=== PATIENT | female | born 2000 | race Caucasian/White ===

== ENCOUNTER 2024-01-12 20:52 | Outpatient (REF) | payer OTHER, SELFPAY | END 2024-01-12 20:53 | disposition home or self-care (01) | LOC: LAB 20:52 | PROVIDERS: Visit Provider Physician Assistant | DX: Z01.419 Encounter for gynecological examination (general) (routine) without abnormal findings (principal) | CPT/HCPCS: 88175 ==

== ENCOUNTER 2025-01-12 14:57 | Outpatient (REF) | payer OTHER, SELFPAY ==
[2025-01-17 13:08] LABS: Age Gdln ACOG Testing Note (.); IGP, rfx Aptima HPV ASCU Note (.)
== END 2025-01-12 14:58 | disposition home or self-care (01) ==
LOC: LAB 14:57
PROVIDERS: Visit Provider Obstetrics & Gynecology
DX: Z01.419 Encounter for gynecological examination (general) (routine) without abnormal findings (principal)
CPT/HCPCS: 88175

== ENCOUNTER 2025-02-10 13:07 | Outpatient (REF) | payer OTHER, SELFPAY ==
--- OUTSIDE RECORDS SUMMARY | 2025-02-11 20:31 | XMS_ITS | Continuity of Care Document ---
Author Organization [facility] Address [address] [place] [address] Phone Care Team Providers Care Supervisor Television Chassis Repair Name Role Phone Eliza Castellano MD Primary Care Provider Eliza Castellano MD Attending Provider Wallace Reyes DO Attending Provider [phone] Care Teams Visit Care Team Team Status: Inactive Member Role Status Dates Eliza Castellano MD Primary Care Provider Active Start: January 10, 2025 End: January 10, 2025 Eliza Castellano MD Attending Provider Active St art: January 10, 2025 End: January 10, 2025 Patient Care Team Team Status: Inactive Member Role Status Dates Wallace Reyes DO Attending Provider Active Start : February 10, 2025 End: February 10, 2025 Chief Complaint and Reason for Visit Chief Complaint Admit Date wellness January 10, 2025 11:0 2am Unknown February 10, 2025 9: 35am Reason for Visit Admit Date Wellness examination January 10, 2025 11: 02am Allergies, Adverse Reactions, Alerts Allergen Type Severity Reaction Last Updated Verified Status No Known Allergies Allergy Unknown January 10, 2025 11:05 am Yes Active Social History Smoking Status Status Start Date End Date Date of Observa tion Never smoked tobacco (finding) January 10, 2025 11:07am Observation Status Observation Response Date of Response Legal Sex Female (finding) Sex Assigned At Female 2002 Status N Malia 14th, 2025 Problems Active Problems Medical Problem Onset Date Status Wellness examination Unknown Active Inactive/Resolved Problems Medical Problem Onset Date Status Bilateral conjunctivitis Unknown Resolve d Medications Medication Status Dose Units Route Directions Qty Days St art Date Stop Date End Date Instructions Adherence Ofloxacin 0.3 % drops Discont inued 2 DROPS EYE-THAD TH Four times daily 10 7 Novemb er 2023 1:00am January 10, 2025 11:06 am Immunizations Immunization Event Date Not Given Reason Dose Number Dispensing Audiologist Lot Number Vaccine Information Statement (VIS) Detail Administration Location COVID-19 mRNA, Comirnaty (Pfizer) January 11, 2021 COVID-19 mRNA, Comirnaty (Pfizer) February 01, 2021 Vital Signs Vital Reading Result Reference Range Collection Date/Time Height 68 [in_i] January 10, 2025 11:03am Weight 60.32 kg January 10, 2025 11:03am Heart Rate 82 /min 60-100 January 10, 2025 11:03am BP Systolic 109 mm[Hg] 100-140 January 10, 2025 11:03am BP Diastolic 69 mm[Hg] 60-100 January 10, 2025 11:03am BMI (Body Mass Index) 20.2 kg/m2 December 282024 11:03am Advance Directives Advance Directive Response Recorded Date/ Time Advance Directives No October 22 11:02am Insurance Providers Guarantor Jaclyn Ahsley Address [address] [place] [id number] Contact Info. Home Phone: Payer Policy Id Subscriber's Name Subscriber Id Effectiv e Date Expiration Date [facility] [place] [id number] Jaclyn Easton Ashley [id number] Encounters Encounter Location(s) Arrival/Admit Date Discharge/Depart Date Provider(s) Departed Physician/Prov ider Office Visit -[facility] January 10, 2025 11:02am January 10, 2025 11:21am Eliza Castellano MD Departed Referred -[facility] February 10, 2025 9:35am February 10, 2025 9:36am Wallace Reyes Recent Diagnosis Onset Date Admit Date Wellness examination Unknown January 10, 2025 11:02am Assessments Diagnosis Onset Date Resolution Status Admit Date Wellness examination acute January 10, 2025 11:02am Plan of Treatment Author Eliza Castellano [facility] Authored January 10, 2025 12:0 9pm Personalized health advice w as given to the beneficiary to health education of preventative counseling services or programs aimed at reducing identified risk factors and improving self-management or community-based lifestyle interventions to reduce health risks and promote self-management and wellness, including physical activity and nutrition. Future Tests Future scheduled test information is unavailable Pending Tests Pending diagnostic test information is unavailable Future Visits Future appointment information is unavailable Referrals to Other Providers Referral information is unavailable Future Procedures Future procedure information is unavailable Future Medications Future medication information is unavailable Patient Instructions Patient instructions are unavailable
--- OUTSIDE RECORDS SUMMARY | 2025-02-16 12:54 | XMS_ITS | Patient Health Record ---
Author Organization [facility] Address [address] [place] [address] Care Team Providers Care Appian Developer Name Role Phone Janessa Rehman MD Primary Care Provider John Cornelius [phone] Allergies No Known Allergies Reason For Referral No Information Social History Tobacco Use: Social History Observation Description Date Details (start date - stop date) Never Smoker NA - NA Smoking History Question Answer Notes Smoking Status NonSmoker Problems Problem Type SNOMED Code ICD Code Onset Dates Problem Status W/U Status Risk Notes Problem [id number] Closed displaced fracture of shaft of left clavicle with routine healing, subsequent encounter (S42.022D) Active confirmed Plan Of Treatment No Information Insurance Providers Payer Name Payer Address Payer Phone Subscriber Number Group Number Insured Name Patient Relationship to Insured Coverage Start Date Coverage End Date Medical Benefits Administ ration [address] [place] [address] [id number] JAYANT DEAL Child - Insured has Financial Responsibility Medical [facility] [address] [place] [address] [id number] JAYANT DEAL Child - Insured has Financial Responsibility Medical (General) History Medical History History ICD Code CPAP Machine: No, Do you use the CPAP machine? No, Pacemaker or AICD No, Latex Allergy No, Drug Allergies: No, Bariatric Surgery: No, Have you been in close conta ct with someone who has had MRSA within the last year? No, Have you ever had or presently have MRSA ? No, Are you a healthcare worker? No, Surgical History Surgery Date(Month/Year) ORIF LEFT CLAVICLE FX 06-11-2018
--- OUTSIDE RECORDS SUMMARY | 2025-02-16 12:54 | XMS_ITS | Clinical Summary ---
Author Organization [facility] Address [address] [place] [address] Phone Care Team Providers Care Bar Tender Name Role Phone Unavailable Primary Care Provider Unavailabl e Allergies No known active allergies Medications methylPREDNISol one (Medrol Dospak) 4 mg tabletsIndicati ons:Rash Follow schedule on package instructions 21 tablet 3 Active Social History Tobacco Use Types Packs/Day Years Used Date Smoking Tobacco: Never Tobacco Cessation:Counseling Given: Not Answered Comments Unknown Sex and Gender Information Value Date Recorded Sex Assigned at Not on file Legal Sex Female 6:39 PM EDT Gender Identity Not on file Sexual Orientation Not on file Last Filed Vital Signs Vital Sign Reading Time Taken Comments Blood Pressure 129/78 03/31/2023 7:07 PM EDT Pulse 55 03/31/2023 7:07 PM EDT Temperature 37.1 C (98.7 F) 03/31/2023 7:07 PM EDT Respiratory Rate 16 03/31/2023 7:07 PM EDT Oxygen Saturation 100% 03/31/2023 7:07 PM EDT Inhaled Oxygen Concentration - - Weight - - Height - - Body Mass Index - - Plan of Treatment Health Maintenance Due Date Last Done Comments HIV Screening 2002 Lipid Panel 2002 Yearly Adult Physical 2002 Hepatitis C Screening 01/24/2020 HPV Vaccines (2 - 3-dose series) 02/15/2020 01/18/2020 Hepatitis A Vaccines (2 of 2 - 2-dose series) 07/20/2020 01/18/2020 Meningococcal B Vaccine (2 of 2 - Bexsero SCDM 2-dose series) 07/20/2020 01/18/2020 Cervical Cancer Screening 2023 HPV/Cotest 2023 Pap Smear 2023 COVID-19 Vaccine ( season) 2024 07/20/2021, 02/01/2021, 01/11/2021 DTaP/Tdap/Td Vaccines (7 - Td or Tdap) 01/25/2025 01/25/2015, 02/10/2008, 01/26/2004, Additional history exists Influenza Vaccine (#1) 2025 Zoster Vaccines (1 of 2) 01/24/2052 02/10/2008, 04/30 Hepatitis B Vaccines Completed 2002, 2002, 2002 HIB Vaccines Completed 01/26/2004, 10/2002, 2002, Additional history exists Pneumococcal Vaccine: Pediatrics and At-Risk Adult Patients Aged Out 01/26/2004, 05/04/2003, 01/26/2003 No longer eligible based on patient's age to complete this topic IPV Vaccines Completed 02/10/2008, 08/30, 2002, Additional history exists MMR Vaccines Completed 02/10/2008, 12/29, 05/04/2003 Meningococcal Vaccine Completed 01/18/2020, 016 Rotavirus Vaccines Aged Out No longer eligible based on patient's age to complete this topic Insurance [employer]CIAL
--- OUTSIDE RECORDS SUMMARY | 2025-02-16 13:04 | XMS_ITS | CCD ---
Author Organization [facility] Care Team Providers Care Repulping Supervisor Name Role Phone MAGALYS SAMSON Unavailable Unavailable MAGALYS SAMSON Unavailable Unavailable MAGALYS SAMSON Unavailable Unavailable JOHN CASTRO Unavailable Unavailable Lillian Little Unavailable Eliza Castellano Unavailable Unavailable Primary Care Provider UnavailEliza Head MD Primary Care Provider Eliza Castellano MD Attending Provider [phone] Eliza Castellano MD Primary Care Provider [phone] Imani Reyes DO Attending Provider IMANI REYES Attending Unavailable IMANI REYES Attending Unavailable Imani Reyes Admitting Unavailable Imani Reyes Attending Unavailable Medications Current Medications Medication Drug Class(es) Dates Sig (Normalized) Sig (Original) azithromycin 250 mg oral tablet (1 source) Macrolide Antimicrobial Start: 4 Azithromycin 250 MG as directed Orally 2 tabs po today, then 1 tab daily x 4 more days for 5 Jun, Active benzonatate 200 mg oral capsule (1 source) Non-narcotic Antitussive Start: 4 take 1 capsule by mouth every eight hours Benzonatate 200 MG 1 capsule Orally Three times a day for 10 day(s) Jun, Active betamethasone 0.5 mg/ml / clotrimazole 10 mg/ml topical lotion (1 source) Azole Antifungal, Corticosteroid Start: 3 End: 3 clotrimazole-betameth asone (Lotrisone) lotion Indications: Rash Apply 1 Application topically 2 times a day for 28 days. 11.2 mL 0 03/31/2023 04/28/2023 Active methylPREDNISolone (1 source) Corticosteroid Start: methylPREDNISolone (Medrol Dospak) 4 mg tablets Indications: Rash Follow schedule on package instructions 21 tablet 0 03/31/2023 Active sulfamethoxazole 800 mg / trimethoprim 160 mg oral tablet (1 source) Dihydrofolate Reductase Inhibitor Antibacterial, Sulfonamide Antimicrobial take 1 tablet by mouth every twelve hours Sulfamethoxazole-Trim ethoprim 800-160 MG 1 tablet Orally Twice a day for 7 days Active Completed/Discontinued Medications Medication Drug Class(es) Dates Sig (Normalized) Sig (Original) Antipyrine / Benzocaine (3 sources) Standardized Chemical Allergen Start: 05-14-2015 Antipyrine-Benzo alhaji 5.4-1.4 % 2 drop affected ear canal into affected ear Otic every 2 hours as needed for ear pain, avoid if ear draining blood or pus for 10 days Apr, Not-Taking Augmentin Tablets 875 MG (3 sources) Start: 05-14-2015 take 1 tablet by mouth every twelve hours Augmentin Tablets 875 MG 1 by mouth every 12 hours for 10 days Apr, Not-Taking ciprofloxacin 3 mg/ml ophthalmic solution (3 sources) Quinolone Antimicrobial Start: 12-23-2021 take 2 drop(s) into the eye(s) every four hours Ciloxan 0.3 % 2 drops each eye every 4 hrs for 7 days Nov, Not-Taking Start: 12-23-2021 take 2 drop(s) into the eye(s) every four hours Ciloxan 0.3 % 2 drops each eye every 4 hrs for 7 days Nov, Active ofloxacin 3 mg/ml ophthalmic solution (5 sources) Quinolone Antimicrobial Start: 05-26-2024 End: 01-10-2025 take 0.3 drop(s) into the eye(s) four times daily Ofloxacin 0.3 % drops Discontinued 2 DROPS EYE-BOTH Four times daily 04 05May 26, 2024 1:00am January 10, 2025 11:06am Start: 05-14-2015 Ofloxacin 0.3 % 5 drops into affected ear Otic Once a day for 7 day(s) Apr, Not-Taking Start: 05-14-2015 Ofloxacin 0.3 % 5 drops into affected ear Otic Once a day for 7 day(s) Apr, Not-Taking Problems Problem Classification Problem Date Documented Date Episodic/Chronic Cancer of cervix (2 sources) Cervical intraepithelial neoplasia grade 1; Translations: [Low grade squamous intraepithelial lesion on cytologic smear of cervix (LGSIL)] 02-10-2025 Episodic Fracture of upper limb (1 source) Fracture of unspecified part of left clavicle, initial encounter for closed fracture; Translations: [FX UNS PRT LT CLAV INITIAL CLOS FX] Onset: 06-12-2018 Episodic Inflammation; infection of eye (except that caused by tuberculosis or sexually transmitteddisease) (3 sources) Unspecified conjunctivitis; Translations: [Bilateral conjunctivitis] Onset: 12-23-2021 Resolved: 12-23-2021 Episodic Other bone disease and musculoskeletal deformities (4 sources) Other specified disorders of bone, shoulder; Translations: [OTHER SPEC DISORDERS BONE SHOULDER] Onset: 06-09-2018 Episodic Other skin disorders (2 sources) Follicular disorder, unspecified Episodic Other skin disorders (1 source) Eruption; Translations: [Rash and other nonspecific skin eruption] 03-31-2023 Episodic Other upper respiratory infections (1 source) Acute maxillary sinusitis, unspecified Episodic Skin and subcutaneous tissue infections (3 sources) Cellulitis, unspecified; Translations: [Cellulitis] Episodic Results Test Name Value Interpretation Reference Range Facility Colposcopyon 02-10-2025 Christen Schroeder MA 02/10/2025 11:10 AM Colposcopy Date/Time: 02/10/2025 10:13 AM Performed by: Imani Reyes DO Authorized by: Imani Reyes DO Consent: Patient questions answered: yes Risks and benefits of the procedure and its alternatives discussed: yes Consent obtained: Written Pre-procedure: Prep solution(s): acetic acid Procedure: Colposcopy with: endocervical curettage Cervix visibility: fully visualized Tampon inserted: no Post-procedure: Patient tolerance of procedure: Patient tolerated the procedure well with no immediate complications Instructions and paperwork completed: yes Educational handouts given: yes [facility] HCG ( test) Ql (U)o n 02-10-2025 Interpretation and review of laboratory results Normal [facility] re Preg Test, Ur Negative Negative [facility] IGP,APTIMA HPV,AGE GDLNon AGE GDLN ACOG TESTING Note . [facility] Comment on above: TESTS RESULT FLAG UN ITS REF RANGE LAB Clinician Provided Cytology Information Source.............Cervix;Endocervix No. of containers..01 ThinPrep Vial Age Algo ACOG Gilma... FLAG LEGEND: L-Low Normal,H-High Normal,LL-Alert Low,HH-Alert High <-Panic Low,>-Panic High,A-Abnormal,AA-Critical Abnormal Performed at: 01 =G [facility] [address] Valerie Dutta MD, IGP, RFX APTIMA HPV ASCU Note Abnormal . [facility] Comment on above: TESTS RESULT FLAG UN ITS REF RANGE LAB DIAGNOSIS: [A] 02 EPITHELIAL CELL ABNORMALITY. LOW GRADE SQUAMOUS INTRAEPITHELIAL LESION (LSIL). Recommendation: [A] 02 Suggest follow up as clinically appropriate. Specimen adequacy: 02 Satisfactory for evaluation. Endocervical and/or squamous metaplastic cells (endocervical component) are present. Performed by: 02 Lawson Maldonado, Chief Console Operator (ASCP) Electronically si... 02 Valerie Dutta MD, Pathologist . 02 Pathologist ICD10: 02 R87.612 Note: Note 02 The Pap smear is a screening test designed to aid in the detection of premalignant and malignant conditions of the uterine cervix. It is not a diagnostic procedure and should not be used as the sole means of detecting cervical cancer. Both false-positive and false-negative reports do occur. Test Methodology: Note 02 This liquid based ThinPrep(R) pap test was screened with the use of an image guided system. . 02 The HPV DNA reflex criteria were not met with this specimen result therefore, no HPV testing was performed. FLAG LEGEND: L-Low Normal,H-High Normal,LL-Alert Low,HH-Alert High <-Panic Low,>-Panic High,A-Abnormal,AA-Critical Abnormal Performed at: [address] [facility] [address] [address] Valerie Dutta MD, Performed at: =G - [facility] [address] [id number] Evaporator Operator Molasses: Valerie Dutta MD, Phone: [phone] Performed at: - [facility] [address] [id number] Evaporator Operator Molasses: Valerie Dutta MD, Phone: [phone] Interpretation and review of laboratory results Abnormal [facility] BRUSH-SPATULA CERVIX ENDOCERVIX [facility] Auth for Release of Medical Recordson 12-20-2020 Auth for Release of Medical Records [id number] CD:127 [facility] Auth for Release of Medical Recordson 12-14-2020 Auth for Release of Medical Records [id number] CD:127 [facility] Consenton 01-19-2020 Consent [id number]#[id number] 0CD:127 [facility] Formson 01-19-2020 Forms [id number] 0CD:127 [facility] Ambulatory Clinical Summaryo n 01-18-2020 Ambulatory Clinical Summary {[id number]}CD:[id number] [facility] Immunization Recordson 01-17 Immunization Records [id number]. 00CD:127 [facility] Pediatrics Office/Clinic Not jemima 01-18-2020 Pediatrics Office/Clinic Note Chief Complaint Here with mom for physical and vaccines. Sees an eye History of Present Illness 19 year old female here for [facility]. Interval History: None Visits to other Specialists: N/A Caregiver?s Questions/Concerns: No Development Motor Skills Active with hobbies/sports: yes Coordinates well: yes Keeps up with other children: yes Outdoor activities: yes Performs Chores: yes Social/Language skills Adheres to rules: yes Caring, supportive relationship with family: yes Has a best friend: yes Peer interaction: yes Performs school work: yes Reads for pleasure: yes Respect for authority: yes Shows independence: yes Shows ability to understand feelings of others: yes Shows self-confidence: yes Understands cause and effect: yes Sleep Generally, the child sleeps 8 hours at night. Media Screen time per day: 1 hours Sexual development Menstruation: yes Age of first menstrual period: 14 Approx date last menstrual cycle: 12/13/2019 Periods: Regular, 12 a year. Cramps with periods: Ye Medication for Cramps: Ibuprofen Nutrition Dairy products (amount and type per day): Dairy. Drinks milk. Meals per day: 3 Types of food: Well balanced diet Healthy body image: Yes Good eating habits: Yes Adequate voiding/stooling: Yes Iron/vitamins, fluoride supplements: MVI Education Current Level in School: 12th School attends: [employer] Recent grade reports: A's Social Situation Wants to go to college. Planning on getting golf scholarship. Lives with MAVERICK HENDERSON (12 year old) Tobacco smoke exposure: No Outside family support present: Yes Regular schedule maintained in the household: Yes Behavioral Assessment Sexual Behavior Health Education: Yes Sexual Orientation: Heterosexual Dating: No Sexual intercourse: Never. Abnormal Behavior Aggressive behavior: No Depression: No Extreme shyness: No Thoughts of suicide: No Safety Issues Addressed careful around unknown pets: yes cautious of strangers: yes fire evacuation plan at home: yes gun safety measures: yes helmet use: yes proper care safety belt use: yes water safety: yes Review of Systems PHQ Score Initial Depression Screen Score: 0 ROS - Provider CONSTITUTIONAL: Negative for growth problems, fatigue, unexplained fevers, and weight loss. EYES: Negative for apparent vision problems, eye drainage, and lazy eye. E/N/T: Negative for apparent hearing deficits, chronic nasal congestion, dental problems, and speech problems. CARDIOVASCULAR: Negative for chest pain, cyanotic spells, edema, and poor exercise tolerance. RESPIRATORY: Negative for chronic cough, dyspnea, exposure to tuberculosis, and wheezing. GASTROINTESTINAL: Negative for abdominal pain, constipation, diarrhea, feeding/nutritional problems, and vomiting. GENITOURINARY: Negative for dysuria, hematuria, difficulty voiding, or rashes/lesions of the external genitalia. MUSCULOSKELETAL: Previous clavicular fracture that required surgical repair. Negative for limb or joint pain, joint swelling, and gait abnormalities. INTEGUMENTARY: Negative for atopic dermatitis, atypical moles, pruritis, rashes, and skin lesions. NEUROLOGICAL: Negative for abnormal tone, developmental delays, syncope, headaches, and seizures. HEMATOLOGIC/LYMPHATIC: Negative for bleeding, excessive bruising, and lymphadenopathy. ENDOCRINE: Negative for abnormal growth or pubertal development, polyuria, and polydipsia. ALLERGIC/IMMUNOLOGIC: Negative for allergies, frequent illnesses, HIV exposure, and urticaria. PSYCHIATRIC: Negative for behavioral or emotional problems. Maternal GFOC with heart history, had an ID when younger but MOC is unsure how old. He for a second ID in is 80s. Paternal GGFOC young, no known cause. Unsure of how old. No known congenital heart problems in family. MOC with mitral valve prolapse. Physical Exam Vitals & Measurements T: 36.9 ?C (Temporal Artery) HR: 80(Peripheral) RR: 14 BP: 100/70 HT: 172 cm WT: 57.3 kg BMI: 19.37 GENERAL: The patient is well developed, well nourished, in no apparent distress. HEAD: The examination of the patient's head revealed Normocephalic. EYES: lids and conjunctiva are normal; pupils and irises are normal; funduscopic exam reveals red reflex present bilaterally; E/N/T: normal external auditory canals and tympanic membranes; Nose: normal nasal mucosa, septum, turbinates, and sinuses; Lips, Teeth and Gums: normal; Oropharynx: normal mucosa, palate, and posterior pharynx; NECK: Neck is supple with full range of motion; RESPIRATORY: normal respiratory rate and pattern with no distress; normal breath sounds with no rales, rhonchi, wheezes or rubs; CARDIOVASCULAR: normal rate and rhythm without murmurs; normal S1 and S2 heart sounds with no S3, S4, rubs, or clicks;; BREASTS: symmetric; no overlying skin changes; appropriate Lobito stage; GASTROINTESTINAL: leah (more content not included)... Normal [facility] XR CLAVICLE LTon 06-09-2018 XR CLAVIC[address] [place] [address] Patient: DARIUSZ DEAL Exam Date: 06/09/2018DOB: 2000 Gender:F : DR MAGALYS SAMSON M.D. Admission #: [id number] : Order #: [id number] HERE TO VIEW EXAM RADIOLOGY REPORT PROCEDURE: RADIOGRAPH CLAVICLE LEFT COMPARISON: None. INDICATIONS: Acute left clavicle pain after basketball injury FINDINGS: BONES: Transverse fracture of the mid left clavicle with inferior displacement of the distal fragment 1.5 bone widths and 2 cm proximal retraction/overlap. No disruption of the acromioclavicular joint.SOFT TISSUES: No visible soft tissue swelling or radiopaque foreign body. OTHER: Negative. CONCLUSION: 1. Acute, markedly displaced mid left clavicle fracture. Preliminary findings were provided to the radiology department at 7:26 p.m.Dictated by: John Castro M.D. on 06/09/2018 at 22:33 Approved by: John Castro M.D. on 06/09/2018 at 22:35 Normal [facility] Vital Signs Date Time Vital Sign Value Performing Clinician Facility 02-10-2025 09:51-0400 Body mass index (BMI) [Ratio] 20.22 kg/m2 Imani Eric DO Work Phone: [facility] 02-10-2025 09:51-0400 Body weight 60.33 kg Imani Eric DO Work Phone: [facility] 02-10-2025 09:51-0400 Diastolic blood pressure 78 mm[Hg] Imani Eric DO Work Phone: [facility] 02-10-2025 09:51-0400 Systolic blood pressure 122 mm[Hg] Imani Eric DO Work Phone: [facility] 01-12-2025 11:07-0400 Body height 172.7 cm Imani Eric DO Work Phone: [facility] 01-12-2025 11:07-0400 Body mass index (BMI) [Ratio] 20.56 kg/m2 Imani Eric DO Work Phone: [facility] 01-12-2025 11:07-0400 Body weight 61.35 kg Imani Eric DO Work Phone: [facility] 01-12-2025 11:07-0400 Diastolic blood pressure 82 mm[Hg] Imani Eric DO Work Phone: [facility] 01-12-2025 11:07-0400 Systolic blood pressure 130 mm[Hg] Imani Eric DO Work Phone: [facility] 01-10-2025 11:03-0400 Body height 172.72 cm Eliza Castellano MD Work Phone: [facility] 01-10-2025 11:03-0400 Body mass index (BMI) [Ratio] 20.2 kg/m2 Eliza Castellano MD Work Phone: [facility] 01-10-2025 11:03-0400 Body weight 60.32 kg Eliza Castellano MD Work Phone: [facility] 01-10-2025 11:03-0400 Diastolic blood pressure 69 mm[Hg] Eliza Castellano MD Work Phone: [facility] 01-10-2025 11:03-0400 Heart rate 82 /min Eliza Castellano MD Work Phone: [facility] 01-10-2025 11:03-0400 Systolic blood pressure 109 mm[Hg] Eliza Castellano MD Work Phone: [facility] 07-03-2023 09:15-0500 Body height 170.18 cm Eliza Castellano Other [employer] [facility] Other 07-03-2023 09:15-0500 Body mass index (BMI) [Ratio] 20.52 kg/m2 Eliza Castellano Other [facility] Other 07-03-2023 09:15-0500 Body weight 59.42 kg Eliza Castellano Other [facility] Other 07-03-2023 09:15-0500 Diastolic blood pressure 81 mm[Hg] Eliza Castellano Other [facility] Other 07-03-2023 09:15-0500 Systolic blood pressure 115 mm[Hg] Eliza Castellano Other [facility] Other 03-31-2023 19:07-0400 Body temperature 98.71 [degF] Juan Pablo Pastor PA-C Work Phone: [facility] 03-31-2023 19:07-0400 Diastolic blood pressure 78 mm[Hg] Juan Pablo Pastor PA-C Work Phone: [facility] 03-31-2023 19:07-0400 Heart rate 55 /min Almeida Pastor PA-C Work Phone: [facility] 03-31-2023 19:07-0400 Respiratory rate 16 /min Almeida Pastor PA-C Work Phone: [facility] 03-31-2023 19:07-0400 SaO2% (BldA) [Mass fraction] 100 % Almeida Pastor PA-C Work Phone: [facility] 03-31-2023 19:07-0400 Systolic blood pressure 129 mm[Hg] Almeida Pastor PA-C Work Phone: [facility] 12-09-2022 10:30-0400 Body height 170.18 cm Eliza Castellano Other [employer] Other 12-09-2022 10:30-0400 Body mass index (BMI) [Ratio] 20.99 kg/m2 Eliza Castellano Other [facility] Other 12-09-2022 10:30-0400 Body weight 60.78 kg Eliza Castellano Other [facility] Other 12-09-2022 10:30-0400 Diastolic blood pressure 60 mm[Hg] Eliza Castellano Other [facility] Other 12-09-2022 10:30-0400 SaO2% (BldA) [Mass fraction] 97 % Eliza Castellano Other [facility] Other 12-09-2022 10:30-0400 Systolic blood pressure 96 mm[Hg] Eliza Castellano Other [employer] Other 12-23-2021 11:25-0400 Body height 172.72 cm Lillian Little Other [employer] Other 12-23-2021 11:25-0400 Body mass index (BMI) [Ratio] 20.98 kg/m2 Lillian Little Other [facility] Other 12-23-2021 11:25-0400 Body temperature 98.6 [degF] Lillian Little Other [facility] Other 12-23-2021 11:25-0400 Body weight 62.6 kg Lillian Little Other [facility] Other 12-23-2021 11:25-0400 Diastolic blood pressure 66 mm[Hg] Lillian Little Other [facility] Other 12-23-2021 11:25-0400 Respiratory rate 16 /min Lillian Little Other [facility] Other 12-23-2021 11:25-0400 SaO2% (BldA) [Mass fraction] 100 % Lillian Little Other [facility] Other 12-23-2021 11:25-0400 Systolic blood pressure 97 mm[Hg] Lillian Little Other [facility] Other Encounters Encounter Date Encounter Type Care Provider Facility Start: 02-10-2025 End: 02-10-2025 Departed Referred Imani Reyes -[facility] Start: 02-10-2025 End: 02-10-2025 Patient encounter procedure Imani Reyes DO Work Phone: [facility] Comment on above: LGSIL of cervix of u ndetermined significance; LGSIL on Pap smear of cervix Start: 02-10-2025 End: 02-10-2025 ambulatory Eliza Castellano MD Work Phone: [facility] Work Phone: Start: 01-12-2025 End: 01-12-2025 Bamboo flowsheet Imani Eric DO Work Phone: [facility] Start: 01-12-2025 End: 01-17-2025 Bamboo flowsheet Imani Eric DO Work Phone: [facility] Start: 01-12-2025 End: 01-17-2025 [facility] Result Encounter Imani Eric DO Work Phone: [facility] Unsolicited Start: 01-12-2025 End: 01-12-2025 ambulatory IMANI ERIC Not Available Start: 01-12-2025 End: 01-12-2025 Patient encounter procedure Imani Eric DO Work Phone: [facility] Start: 01-12-2025 End: 01-12-2025 Periodic preventive med est patient 18-39 yrs Imani Eric DO Work Phone: [facility] Comment on above: Well woman exam with routine gynecological exam Start: 01-10-2025 Patient encounter status Caridad Castellano MD Work Phone: [facility] Start: 01-10-2025 End: 01-10-2025 ambulatory Eliza Castellano MD Work Phone: [facility] Work Phone: Start: 01-10-2025 End: 01-10-2025 Patient encounter procedure Eliza Castellano MD -[facility] Work Phone: Start: 01-10-2025 End: 01-10-2025 Patient encounter status Eliza Castellano MD [facility] Start: 07-03-2023 End: 07-03-2023 ambulatory Eliza Castellano Other [employer] Other Start: 07-03-2023 Office outpatient vi sit 15 minutes Eliza Castellano [facility] Start: 04-10-2023 (Televisit) Televisit Eliza Nona [facility] Start: 04-10-2023 End: 04-10-2023 ambulatory Eliza Nona Other [facility] Other Start: 03-31-2023 End: 03-31-2023 Office outpatient new 45 minutes Juan Pablo Pastor PA-C Work Phone: [facility] Comment on above: Rash (Primary Dx) Start: 12-09-2022 End: 12-09-2022 ambulatory Eliza Nona Other [employer] Other Start: 12-09-2022 Encounter for genera l adult medical examination without abnormal findings Elizayazan Castellano [facility] Start: 12-09-2022 Periodic preventive med est patient 18-39 yrs Eliza Castellano [facility] Start: 12-23-2021 End: 12-23-2021 ambulatory Lillian Little Other [facility] Other Start: 12-23-2021 Office outpatient ne w 20 minutes Lillian Little [facility] Start: 06-09-2018 End: 06-10-2018 Patient encounter procedure MAGALYS SAMSON Facility: Procedures Date Procedure Procedure Detail Performing Clinician Start: 02-10-2025 COLPOSCOPY Imani Fazi o DO Work Phone: Start: 02-10-2025 Urine test visual color cmprsn meths Imani Eric DO Work Phone: Start: 01-12-2025 IGP,APTIMA HPV,AGE GDLN Imani Eric DO Work Phone: Plan of Treatment Date Care Activity Detail Author Start: 01-24-2052 Zoster Vaccines (1 o f 2) Zoster Vaccines (1 of 2) [facility] Start: 01-17-2026 End: 01-17-2026 Patient encounter procedure [facility] Start: 08-15-2025 End: 08-15-2025 Patient encounter procedure 08/15/2025 8:30 AM EST Procedure Visit NOMAmber [facility] [address] [place] [address] Imani Reyes DO [address] [place] [address] [facility]ATHER [place] [facility] Start: 02-28-2025 Influenza vaccination Influenza Vacc ine (#1) [facility] Start: 02-10-2025 End: 02-10-2026 Colposcopy Colposcopy Procedures Routine LGSIL on Pap smear of cervix Expected: 02/10/2025 (Approximate), Expires: 02/10/2026 [facility] Work Phone: Comment on above: Expected: 02/10/2025 (Approximate), Expires: 02/10/2026 Start: 01-25-2025 DTaP/Tdap/Td Vaccine s (7 - Td or Tdap) DTaP/Tdap/Td Vaccines (7 - Td or Tdap) [facility] Start: 02-28-2023 Influenza vaccination Influenza Vacc ine (#1) [facility] Start: 2023 Screening for malignant neoplasm of cervix [facility] Start: 09-14-2021 COVID-19 Vaccine (4 - Pfizer series) COVID-19 Vaccine (4 - Pfizer series) [facility] Start: 07-20-2020 Hepatitis A Vaccines (2 of 2 - 2-dose series) Hepatitis A Vaccines (2 of 2 - 2-dose series) [facility] Start: 02-15-2020 HPV Vaccines (2 - 3-dose series) HPV Vaccines (2 - 3-dose series) [facility] Start: 01-24-2020 Hepatitis C screening Hepatitis C Sc donato [facility] Start: 2005 Well Child Visit (WC V) - Annual Well Child Visit (WCV) - Annual [facility] Start: 2002 Hearing Screening (#1) Hearing Scree lea (#1) [facility] Start: 2002 HIV screening HIV Screening [facility] Start: 2002 Lipid panel Lipid Panel [facility] Cytology Cervical or vaginal smear or scraping study Pap Smear Pathology and Cytology Routine Well woman exam with routine gynecological exam Ordered: 01/12/2025 [facility] Work Phone: Comment on above: Ordered: 01/12/2025 Immunizations Immunization Date Immunization Notes Care Provider Guicho henderson 02-01-2021 COVID-19 Vaccine Pfi zer - Documentation Purposes Only Eliza Castellano Other [facility] 01-11-2021 COVID-19 Vaccine Pfi zer - Documentation Purposes Only Eliza Castellano Other [facility] 01-18-2020 hepatitis A and hepatitis B vaccine Juan Pablo Pastor PA-C Work Phone: [facility] Work Phone: 01-18-2020 HPV, unspecified formulation Juan Pablo Pastor PA-C Work Phone: [facility] Work Phone: Payers Date Payer Category Payer Self-pay 2023 Private Health Insurance [employer] [id number] 2023 Unknown [id number] 2021 Unknown [employer]IC [employer] [id number] 2021-Present [phone] [id number] 2002 Unknown [id number] 2002 Unknown [id number] 1973 Unknown [id number] 1959 Unknown [id number] Unknown [id number] Social History Date Type Detail Facility Start: 03-31-2023 Sex Assigned At [facility] Other Start: 03-31-2023 End: 01-10-2025 Tobacco smoking status NHIS Never smoked tobacco [facility] Work Phone: Start: 03-31-2023 History of Social function [facility] Work Phone: Start: 2002 Sex Assigned At Not on file [facility] Work Phone: Start: 03-21-2023 End: 03-31-2023 Exposure to SARS-CoV-2 (event) Unable to assess [facility] Sex Female (finding) [facility] Start: 2002 Sex Assigned At Female [facility] Tobacco smoking status NHIS Tobacco smoking consumption unknown [facility] NEGATED: Highlighted row N [facility] Clinical Notes 12-23-2021 to 02-10-2025 Suzie Rowley LPN - 02/10/2025 9:30 AM EDTGrace Troy LPN - 01/12/2025 11:00 AM EDT Note Date & Type Note Facility 02-10-2025 History of Presen t illness Narrative Associated Order(s): Colposcopy Post-Procedure Diagnose(s): LGSIL of cervix of undetermined significance Reason for Appointment: Patient ID: Dariusz Deal is a 25 y.o. female who presents for Abnormal Pap Smear (Pt present today for a Colposcopy procedure. Pt had an abnormal pap smear on 01/12/2025 LGSIL.) Patient presents today for a Colposcopy appointment. MEDICATIONS No current outpatient medications ALLERGIES No Known Allergies PROBLEMS Active Ambulatory Problems Diagnosis Date Noted No Active Ambulatory Problems Resolved Ambulatory Problems Diagnosis Date Noted No Resolved Ambulatory Problems No Additional Past Medical History HISTORY PAST MEDICAL HISTORY SOCIAL HISTORY No past medical history on file. Social History Tobacco Use Smoking status: Not on file Smokeless tobacco: Not on file Substance Use Topics Alcohol use: Not on file Drug use: Not on file FAMILY HISTORY No family history on file. SURGICAL HISTORY Past Surgical History: Procedure Laterality Date CLAVICLE SURGERY May 2018 REVIEW OF SYSTEMS Review of Systems: Review of Systems Constitutional: Negative. HENT: Negative. Eyes: Negative. Respiratory: Negative. Cardiovascular: Negative. Gastrointestinal: Negative. Genitourinary: Negative. Musculoskeletal: Negative. Skin: Negative. Neurological: Negative. All other systems reviewed and are negative. Hematological: Negative. Endocrine: Negative. Allergic/Immunologic: Negative. OBJECTIVE Objective: Physical Exam Constitutional: Appearance: Normal appearance. She is well-developed. Genitourinary: Vulva normal. Cardiovascular: Rate and Rhythm: Normal rate and regular rhythm. Pulmonary: Effort: Pulmonary effort is normal. Breath sounds: Normal breath sounds. Abdominal: General: Bowel sounds are normal. There is no distension. Palpations: Abdomen is soft. Tenderness: There is no abdominal tenderness. There is no guarding or rebound. Musculoskeletal: General: No swelling. Normal range of motion. Right lower leg: No edema. Left lower leg: No edema. Neurological: Mental Status: She is alert and oriented to person, place, and time. Skin: General: Skin is warm and dry. Psychiatric: Mood and Affect: Mood normal. Behavior: Behavior normal. Vitals and nursing note reviewed. Exam conducted with a farm machinery assembler present. Vitals: Estimated body mass index is 20.22 kg/m as calculated from the following: Height as of 01/12/25: 5' 8 . Weight as of this encounter: 133 lb. BP: 122/78 Patient's last menstrual period was 01/31/2025 (approximate). ASSESSMENT & PLAN Assessment/Plan Encounter Diagnosis: ICD-10-CM 1. LGSIL of cervix of undetermined significance R87.612 POCT , urine manually resulted Colposcopy CANCELED: Colposcopy 2. LGSIL on Pap smear of cervix R87.612 Colposcopy Colposcopy Date/Time: 02/10/2025 10:13 AM Performed by: Imani Reyes DO Authorized by: Imani Reyes DO Consent: Patient questions answered: yes Risks and benefits of the procedure and its alternatives discussed: yes Consent obtained: Written Pre-procedure: Prep solution(s): acetic acid Procedure: Colposcopy with: endocervical curettage Cervix visibility: fully visualized Tampon inserted: no Post-procedure: Patient tolerance of procedure: Patient tolerated the procedure well with no immediate complications Instructions and paperwork completed: yes Educational handouts given: yes Colposcopy: Patient is doing well and has no complaints. Pap results have been reviewed with the patient in great detail and patient voiced understanding. Patient presents today for a Colposcopy with ECC. Patient was placed in dorsal lithotomy position with feet in stirrups, a sterile speculum was placed into the vagina and the cervix was visualized. Cervix was cleansed with vinegar. Postprocedural instructions given. All if patients questions answered and she expressed understanding. Advised to call in interim with questions or concerns. Follow Up: Patient is to return in 6 months for Repeat Pap. Documented by Suzie Rowley LPN on behalf of: Imani Reyes DO documented in this encounter [facility] 01-12-2025 History of Presen t illness Narrative Reason for Appointment: Patient ID: Dariusz Deal is a 24 y.o. female who presents for Well Women Visit Patient presents today for Annual Exam. MEDICATIONS No current outpatient medications ALLERGIES No Known Allergies PROBLEMS Active Ambulatory Problems Diagnosis Date Noted No Active Ambulatory Problems Resolved Ambulatory Problems Diagnosis Date Noted No Resolved Ambulatory Problems No Additional Past Medical History HISTORY PAST MEDICAL HISTORY SOCIAL HISTORY History reviewed. No pertinent past medical history. Social History Tobacco Use Smoking status: Not on file Smokeless tobacco: Not on file Substance Use Topics Alcohol use: Not on file Drug use: Not on file FAMILY HISTORY No family history on file. SURGICAL HISTORY Past Surgical History: Procedure Laterality Date CLAVICLE SURGERY May 2018 REVIEW OF SYSTEMS Review of Systems: Review of Systems Constitutional: Negative. HENT: Negative. Eyes: Negative. Respiratory: Negative. Cardiovascular: Negative. Gastrointestinal: Negative. Genitourinary: Negative. Musculoskeletal: Negative. Skin: Negative. Neurological: Negative. All other systems reviewed and are negative. Hematological: Negative. Endocrine: Negative. Allergic/Immunologic: Negative. OBJECTIVE Objective: Physical Exam Constitutional: Appearance: Normal appearance. She is well-developed. Genitourinary: Vulva normal. Breasts: Breasts are soft. Right: Normal. Left: Normal. Cardiovascular: Rate and Rhythm: Normal rate and regular rhythm. Pulmonary: Effort: Pulmonary effort is normal. Breath sounds: Normal breath sounds. Abdominal: General: Bowel sounds are normal. There is no distension. Palpations: Abdomen is soft. Tenderness: There is no abdominal tenderness. There is no guarding or rebound. Musculoskeletal: General: No swelling. Normal range of motion. Right lower leg: No edema. Left lower leg: No edema. Neurological: Mental Status: She is alert and oriented to person, place, and time. Skin: General: Skin is warm and dry. Psychiatric: Mood and Affect: Mood normal. Behavior: Behavior normal. Vitals and nursing note reviewed. Exam conducted with a farm machinery assembler present. Vitals: Estimated body mass index is 20.56 kg/m as calculated from the following: Height as of this encounter: 5' 8 . Weight as of this encounter: 135 lb 4 oz. BP: 130/82 Patient's last menstrual period was 12/31/2024 (approximate). ASSESSMENT & PLAN ICD-10-CM 1. Well woman exam with routine gynecological exam Z01.419 Pap Smear No orders of the defined types were placed in this encounter. Annual Wellness Exam: Patient presents today for routine annual exam. Patient states she has no current complaints. Patients vitals were reviewed and within normal limits. Growth and development is noted to be appropriate for age. Menstrual history is noted to be regular with no concerns reported. No mental health concerns was expressed. Pap Smear: Speculum was inserted into the vagina and pap was obtained without difficulty. No HPV testing was performed per age guideline. Patient was advised that pap results could take anywhere from 7 to 10 days to receive and our office will reach out to the patient with those once we have them. Patient can also view results via [employer]. I reinforced importance of condom use for STI prevention. Patient declined cultures to be performed with today's visit. Breast Exam: Upon examination, clinical breast exam was noted to be normal. Patient was counseled on breast self-awareness, including the importance of knowing what is normal for her own breasts and promptly reporting any changes such as new lumps, skin dimpling, nipple discharge, or pain. Screening mammogram recommended annually beginning at age 40 or earlier if risk factors are present. Discussed signs and symptoms of breast cancer and when to seek medical attention. Answered all patient questions. Contraceptive Counseling (if applicable): Patient is currently using no control at this time as a form of contraceptive. Patient does not desire control at this time. Follow Up: Patient is to return to our office in one year for annual exam unless needed otherwise. Documented by Grace Troy LPN on behalf of: Imani Reyes DO documented in this encounter [facility] 01-10-2025 Evaluation note Diagnosis Onset Date Resolution Wellness examination acute January 10, 2025 11:02am [facility] Work Phone: 1(269) 952-778201-04-2024 Evaluation note* Encounter Date Diagnosis Assessment Notes Treatment Notes Treatment Clinical Notes Jun, Acute non-recurrent maxillary sinusitis (ICD-10 - J01.00) Take antibiotic as directed. If develop wheezing, chest tightness, itching, bad cough, blue skin color, seizures, swelling of face, lips, tongue, or throat report to ED. Jun, Folliculitis (ICD-10 - L73.9) Pt states problem has improved, but does flare w certain deoderant at times [facility] Other 10-12-2023 Evaluation note* Encounter Date Diagnosis Assessment Notes Treatment Notes Treatment Clinical Notes Mar, Folliculitis (ICD-10 - L73.9) Finish oral antibiotics. 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 Discussed stress relief and treatment going forward. [facility] Other 10-02-2023 History of Present illness Narrative* Juan Pablo Pastor PA-C - 03/31/2023 6:55 PM EDT Subjective Patient ID: Dariusz Deal is a 23 y.o. female who presents for Rash. Rash patient with rash to bilateral axilla and some on the bilateral upper extremities and abdomen. She does note that she recently switched deodorants as well as body wash. She golfs at school and has been quite sweaty. Notes that she did have eczema as a child but has not had much problems since becoming an adult. She denies any fevers or chills. Notes the rash is quite itchy. Denies any nausea vomiting diarrhea or abdominal pain. Denies any fevers or chills Review of Systems Skin: Positive for rash. The remainder of the systems were reviewed and are negative unless noted above Objective BP 129/78 Pulse 55 Temp 37.1 C (98.7 F) Resp 16 LMP 03/29/2023 SpO2 100% Physical Exam Constitutional: General: She is not in acute distress. Appearance: Normal appearance. She is not ill-appearing, toxic-appearing or diaphoretic. HENT: Head: Normocephalic and atraumatic. Mouth/Throat: Mouth: Mucous membranes are moist. Pharynx: Oropharynx is clear. Eyes: Conjunctiva/sclera: Conjunctivae normal. Cardiovascular: Rate and Rhythm: Normal rate and regular rhythm. Heart sounds: No murmur heard. Pulmonary: Effort: Pulmonary effort is normal. Breath sounds: Normal breath sounds. Musculoskeletal: General: Normal range of motion. Cervical back: Normal range of motion and neck supple. Skin: General: Skin is warm and dry. Findings: Erythema and rash present. Rash is macular and papular. Comments: Rash present largely to the bilateral axilla Neurological: Mental Status: She is alert. Assessment/Plan The rash appears to be likely contact dermatitis versus tinea to the bilateral axilla. I am recommending the patient discontinue use of the recent deodorant as well as the recent new body wash. Recommending unscented soaps, lotions I am sending Lotrisone to the patient's pharmacy and starting the patient on a methylprednisolone pack documented in this [facility] Work Phone: 1(660) 567-422510-02-2023 Instructions* Patient Instructions* Juan Pablo Pastor PA-C - 03/31/2023 6:55 PM EDT Assessment/Plan The rash appears to be likely contact dermatitis versus tinea to the bilateral axilla. I am recommending the patient discontinue use of the recent deodorant as well as the recent new body wash. Recommending unscented soaps, lotions I am sending Lotrisone to the patient's pharmacy and starting the patient on a methylprednisolone pack [facility] 1(648) 921-643806-12-2023 Evaluation note* Encounter Date Diagnosis Assessment Notes Treatment Notes Treatment Clinical Notes Nov, Well adult exam (ICD-10 - Z00.00) We have discussed the necessity of following up with PCP regularly as well as specialists, as needed. Discussed F/U with dentistry and optometry at least yearly. Discussed all preventative measures/ cancer screenings as applicable to this patient. Emphasized the importance of a reduced fat, low carb diet to promote heart health and controlled blood sugars. Reviewed social history and ensured patient is safe within the home today. Pt denies any abuse of alcohol, nicotine, caffeine or recreational drugs. I have ensured patient is of stable mental and physical health today. We have discussed appropriate F/U schedule as well as blood work and vaccinations that apply. All questions answered and patient is sent home pleased, without concerns. [facility] Other 06-26-2022 Evaluation note* Encounter Date Diagnosis Assessment Notes Treatment Notes Treatment Clinical Notes Nov, Conjunctivitis of both eyes, unspecified conjunctivitis type (ICD-10 - H10.9) Drink plenty fluids, get plenty of rest. Discard your contacts that you are wearing. Use the eyedrops as prescribed. Follow-up with your eye doctor regarding when to start wearing your contacts again. [facility] Other Evaluation note* Diagnosis Rash- Primary Rash and other nonspecific skin eruption documented in this encounter [facility] Work Phone: Evaluation noteNo assessment information available [facility] Work Phone: Evaluation note* Diagnosis Well woman exam with routine gynecological exam Routine gynecological examination documented in this encounter [facility] HealthcareEvaluation note* Diagnosis LGSIL of cervix of undetermined significance LGSIL on Pap smear of cervix documented in this encounter [facility] HealthcareHistory general Narrative - Reported* Type Description Date Surgical History left clavicle 2018 Hospitalization History dehydration [facility] Other History general Narrative - Reported* Type Description Date Medical History Cellulitis Surgical History left clavicle 2018 Hospitalization History dehydration [facility] Other Reason for referral (narrative)No reason for referral [facility] Work Phone: Summary Purpose Family History No Family History Records FoundNo Family History Records FoundNo Family History Records FoundNo Family History Records Found Advance Directives No Advanced Directives Records Found Advance Directive Response Recorded Date/ Time Advance Directives No October 22 11:02am Chief Complaint and Reason for Visit Chief Complaint Admit Date wellness January 10, 2025 11:0 2am Chief Complaint Admit Date wellness January 10, 2025 11:0 2am Unknown February 10, 2025 9: 35am Reason for Visit Admit Date Wellness examination January 10, 2025 11: 02am Additional Source Comments INFORMATION SOURCE (unrecogn ized section and content) DATE CREATED AUTHOR 06/14/2018 [facility] DATE CREATED AUTHOR AUTHOR'S ORGANIZ ATION 12/21/2020 [facility] DATE CREATED AUTHOR AUTHOR'S ORGANIZ ATION 02/12/2025 [facility] DATE CREATED AUTHOR AUTHOR'S ORGANIZ ATION 02/13/2025 [facility] REASON FOR VISIT (unrecogniz ed section and content) Reason Comments Rash Reason Comments Well Women Visit Reason Comments Abnormal Pap Smear Pt present today for a Colposcopy procedure. Pt had an abnormal pap smear on 01/12/2025 LGSIL. Care Teams (unrecognized sec tion and content) Team Status: Active Member Role Status Dates Eliza Castellano MD Primary Care Provider Active Team Status: Inactive Member Role Status Dates Eliza Castellano MD Primary Care Provider Active Start: January 10, 2025 End: January 10, 2025 Eliza Castellano MD Attending Provider Active St art: January 10, 2025 End: January 10, 2025 Repulping Supervisor Relationship Specialty Start Date End Date Eliza Castellano MD [address] [place] [id number] PCP - General Family Medicine 01/12/24 Repulping Supervisor Relationship Specialty Start Date End Date Eliza Castellano MD [address] [place] [phone] PCP - General Family Medicine 01/12/24 Repulping Supervisor Relationship Specialty Start Date End Date Eliza Castellano MD [address] [place] [phone] PCP - General Family Medicine 01/12/24 Repulping Supervisor Relationship Specialty Start Date End Date Eliza Castellano MD [address] [place] [phone] PCP - General Family Medicine 01/12/24 Team Status: Inactive Member Role Status Dates Imani Reyes DO Attending Provider Active Start : February 10, 2025 End: February 10, 2025 Goals (unrecognized section and content) Goals may be documented in a n alternate section FOR RECORDS PERTAINING TO PATIENTS WHO ARE OR HAVE BEEN ENROLLED IN A CHEMICAL DEPENDENCY/SUBSTANCEABUSE PROGRAM, SOME INFORMATION MAY BE OMITTED. This clinical summary was aggregated from multiple sources. Caution should be exercised in using it in the provision of clinical care. This summary normalizes information from multiple sources, and as a consequence, information in this document may materially change the coding, format and clinical context of patient data. In addition, data may be omitted in some cases. CLINICAL DECISIONS SHOULD BE BASED ON THE PRIMARY CLINICAL RECORDS. [facility] [employer] [facility]. provides no warranty or guarantee of the accuracy or completeness of information in this document.
--- OUTSIDE RECORDS SUMMARY | 2025-02-16 13:14 | XMS_ITS | CCD ---
Author Organization [facility] Care Team Providers Care Drafting Detailer Name Role Phone MAGALYS SAMSON Unavailable Unavailable MAGALYS SAMSON Unavailable Unavailable MAGALYS SAMSON Unavailable Unavailable JOHN CASTRO Unavailable Unavailable Lillian Little Unavailable Eliza Castellano Unavailable Unavailable Primary Care Provider UnavailEliza Head MD Primary Care Provider Eliza Castellano MD Attending Provider Eliza Castellano MD Primary Care Provider Imani Reyes DO Attending Provider [phone] IMANI REYES Attending Unavailable IMANI REYES Attending [...] paperwork completed: yes Educational handouts given: yes [facility] HCG ( test) Ql (U)o n 02-10-2025 Interpretation and review of laboratory results Normal [facility] re Preg Test, Ur Negative Negative [facility] IGP,APTIMA HPV,AGE GDLNon AGE GDLN ACOG TESTING Note . [facility] Comment on above: TESTS RESULT FLAG UN ITS REF RANGE LAB Clinician Provided Cytology Information Source.............Cervix;Endocervix No. of containers..01 ThinPrep Vial Age Algo ACOG Gilma... FLAG LEGEND: L-Low Normal,H-High Normal,LL-Alert Low,HH-Alert High <-Panic Low,>-Panic High,A-Abnormal,AA-Critical Abnormal Performed at: 01 =G [facility] [address] Valerie Dutta MD, IGP, RFX APTIMA HPV ASCU Note Abnormal . [facility] Comment on above: TESTS RESULT FLAG UN ITS REF RANGE LAB DIAGNOSIS: [A] 02 EPITHELIAL CELL ABNORMALITY. LOW GRADE SQUAMOUS INTRAEPITHELIAL LESION (LSIL). Recommendation: [A] 02 Suggest follow up as clinically appropriate. Specimen adequacy: 02 Satisfactory for evaluation. Endocervical and/or squamous metaplastic cells (endocervical component) are present. Performed by: 02 Lawson Maldonado, Faculty Support Coordinator (ASCP) Electronically si... 02 Valerie Dutta MD, [...] Low,>-Panic High,A-Abnormal,AA-Critical Abnormal Performed at: [address] [facility] [address] [address] Valerie Dutta MD, Performed at: =G - [facility] [address] [id number] Diet Clerk: Valerie Dutta MD, Phone: [phone] Performed at: - [facility] [address] [id number] Diet Clerk: Valerie Dutta MD, Phone: [phone] Interpretation and review of laboratory results Abnormal [facility] BRUSH-SPATULA CERVIX ENDOCERVIX [facility] Auth for Release of Medical Recordson 12-20-2020 Auth for Release of Medical Records [id number] CD:127 [facility] Auth for Release of Medical Recordson 12-14-2020 Auth for Release of Medical Records [id number] CD:127 [facility] Consenton 01-19-2020 Consent [id number] 0CD:127 [facility] Formson 01-19-2020 Forms [id number] 0CD:127 [facility] Ambulatory Clinical Summaryo n 01-18-2020 Ambulatory Clinical Summary {[id number]-16}CD:[id number] [facility] Immunization Recordson 01-17 Immunization Records [id number]. 00CD:127 [facility] Pediatrics Office/Clinic Not jemima 01-18-2020 Pediatrics Office/Clinic Note Chief Complaint Here with mom for physical and vaccines. Sees an eye History of Present Illness 19 year old female here for [facility]. Interval History: None Visits to other Specialists: [...] Maternal GFOC with heart history, had an PA when younger but MOC is unsure how old. He for a second PA in is 80s. Paternal GGFOC young, no [...] GASTROINTESTINAL: leah (more content not included)... Normal [facility] XR CLAVICLE LTon 06-09-2018 XR CLAVICLE [address] [place] [address] Patient: DARIUSZ DEAL Exam Date: 06/09/2018DOB: 2000 Gender:F : DR MAGALYS SAMSON M.D. Admission #: [id number] : Order #: [id number] HERE TO VIEW EXAM RADIOLOGY REPORT PROCEDURE: [...] Castro M.D. on 06/09/2018 at 22:35 Normal [facility] Vital Signs Date Time Vital Sign Value Performing Clinician Facility 02-10-2025 09:51-0400 Body mass index (BMI) [Ratio] 20.22 kg/m2 Imani Eric DO Work Phone: [facility] 02-10-2025 09:51-0400 Body weight 60.33 kg Imani Eric DO Work Phone: [facility] 02-10-2025 09:51-0400 Diastolic blood pressure 78 mm[Hg] Imani Eric DO Work Phone: [facility] 02-10-2025 09:51-0400 Systolic blood pressure 122 mm[Hg] Imani Eric DO Work Phone: [facility] 01-12-2025 11:07-0400 Body height 172.7 cm Imani Eric DO Work Phone: [facility] 01-12-2025 11:07-0400 Body mass index (BMI) [Ratio] 20.56 kg/m2 Imani Eric DO Work Phone: [facility] 01-12-2025 11:07-0400 Body weight 61.35 kg Imani Eric DO Work Phone: [facility] 01-12-2025 11:07-0400 Diastolic blood pressure 82 mm[Hg] Imani Eric DO Work Phone: [facility] 01-12-2025 11:07-0400 Systolic blood pressure 130 mm[Hg] Imani Eric DO Work Phone: [facility] 01-10-2025 11:03-0400 Body height 172.72 cm Eliza Castellano MD Work Phone: [facility] 01-10-2025 11:03-0400 Body mass index (BMI) [Ratio] 20.2 kg/m2 Eliza Castellano MD Work Phone: [facility] 01-10-2025 11:03-0400 Body weight 60.32 kg Eliza Castellano MD Work Phone: [facility] 01-10-2025 11:03-0400 Diastolic blood pressure 69 mm[Hg] Eliza Castellano MD Work Phone: [facility] 01-10-2025 11:03-0400 Heart rate 82 /min Eliza Castellano MD Work Phone: [facility] 01-10-2025 11:03-0400 Systolic blood pressure 109 mm[Hg] Eliza Castellano MD Work Phone: [facility] 07-03-2023 09:15-0500 Body height 170.18 cm Eliza Castellano Other [employer] [facility] [employer] Other 07-03-2023 09:15-0500 Body mass index (BMI) [Ratio] 20.52 kg/m2 Eliza Castellano Other [facility] Other 07-03-2023 09:15-0500 Body weight 59.42 kg Eliza Castellano Other [facility] Other 07-03-2023 09:15-0500 Diastolic blood pressure 81 mm[Hg] Eliza Castellano Other [facility] Other 07-03-2023 09:15-0500 Systolic blood pressure 115 mm[Hg] Eliza Castellano Other [facility] Other 03-31-2023 19:07-0400 Body temperature 98.71 [degF] Juan Pablo Pastor PA-C Work Phone: [facility] 03-31-2023 19:07-0400 Diastolic blood pressure 78 mm[Hg] Juan Pablo Pastor PA-C Work Phone: [facility] 03-31-2023 19:07-0400 Heart rate 55 /min Almeida Pastor PA-C Work Phone: [facility] 03-31-2023 19:07-0400 Respiratory rate 16 /min Almeida Pastor PA-C Work Phone: [facility] 03-31-2023 19:07-0400 SaO2% (BldA) [Mass fraction] 100 % Almeida Pastor PA-C Work Phone: [facility] 03-31-2023 19:07-0400 Systolic blood pressure 129 mm[Hg] Almeida Pastor PA-C Work Phone: [facility] 12-09-2022 10:30-0400 Body height 170.18 cm Eliza Castellano Other [facility] Other 12-09-2022 10:30-0400 Body mass index (BMI) [Ratio] 20.99 kg/m2 Eliza Castellano Other [facility] Other 12-09-2022 10:30-0400 Body weight 60.78 kg Eliza Castellano Other [facility] Other 12-09-2022 10:30-0400 Diastolic blood pressure 60 mm[Hg] Eliza Castellano Other [facility] Other 12-09-2022 10:30-0400 SaO2% (BldA) [Mass fraction] 97 % Eliza Castellano Other [facility] Other 12-09-2022 10:30-0400 Systolic blood pressure 96 mm[Hg] Eliza Castellano Other [facility] Other 12-23-2021 11:25-0400 Body height 172.72 cm Lillian Little Other [facility] Other 12-23-2021 11:25-0400 Body mass index (BMI) [Ratio] 20.98 kg/m2 Lillian Little Other [facility] Other 12-23-2021 11:25-0400 Body temperature 98.6 [degF] Lillian Little Other [facility] Other 12-23-2021 11:25-0400 Body weight 62.6 kg Lillian Little Other [facility] Other 12-23-2021 11:25-0400 Diastolic blood pressure 66 mm[Hg] Lillian Little Other [facility] Other 12-23-2021 11:25-0400 Respiratory rate 16 /min Lillian Little Other [facility] Other 12-23-2021 11:25-0400 SaO2% (BldA) [Mass fraction] 100 % Lillian Little Other [facility] Other 12-23-2021 11:25-0400 Systolic blood pressure 97 mm[Hg] Lillian Little Other [facility] Other Encounters Encounter Date Encounter Type Care Provider Facility Start: 02-10-2025 End: 02-10-2025 Departed Referred Imani Reyes -[facility] Start: 02-10-2025 End: 02-10-2025 Patient encounter procedure Imani Reyes DO Work Phone: [facility] Comment on above: LGSIL of cervix of u ndetermined significance; LGSIL on Pap smear of cervix Start: 02-10-2025 End: 02-10-2025 ambulatory Eliza Castellano MD Work Phone: [facility] Work Phone: Start: 01-12-2025 End: 01-12-2025 Bamboo [...] encounter status Caridad Castellano MD Work Phone: [facility] Start: 01-10-2025 End: 01-10-2025 ambulatory Eliza Castellano MD Work Phone: [facility] Work Phone: Start: 01-10-2025 End: 01-10-2025 Patient encounter procedure Eliza Castellano MD -[facility] Work Phone: Start: 01-10-2025 End: 01-10-2025 Patient encounter status Eliza Castellano MD [facility] Start: 07-03-2023 End: 07-03-2023 ambulatory Eliza Castellano Other Medical Referral Source Other Start: 07-03-2023 Office outpatient vi sit 15 minutes Eliza Castellano [facility] Start: 04-10-2023 (Televisit) Televisit Eliza Nona [facility] Start: 04-10-2023 End: 04-10-2023 ambulatory Eliza Nona Other [facility] Other Start: 03-31-2023 End: 03-31-2023 Office outpatient new 45 minutes Juan Pablo Pastor PA-C Work Phone: [facility] Comment on above: Rash (Primary Dx) Start: 12-09-2022 End: 12-09-2022 ambulatory Eliza Nona Other [facility] Referral Source Other Start: 12-09-2022 Encounter for genera l adult medical examination without abnormal findings Elizayazan Castellano [facility] Start: 12-09-2022 Periodic preventive med est patient 18-39 yrs Elzia Castellano [facility] Start: 12-23-2021 End: 12-23-2021 ambulatory Lillian Little Other Medical Referral Source Other Start: 12-23-2021 Office outpatient ne w 20 minutes Lillian Little [facility] Start: 06-09-2018 [...] f 2) Zoster Vaccines (1 of 2) [facility] Start: 01-17-2026 End: 01-17-2026 Patient encounter procedure [facility] Start: 08-15-2025 End: 08-15-2025 Patient encounter procedure 08/15/2025 8:30 AM EST Procedure Visit NOMAmber [facility] [address] [place] [address] Imani Reyes DO [address] [place] [address] HEATHER Herzog OBDYLAN Start: 02-28-2025 Influenza vaccination Influenza Vacc ine (#1) [facility] Start: 02-10-2025 End: 02-10-2026 Colposcopy Colposcopy Procedures Routine LGSIL on Pap smear of cervix Expected: 02/10/2025 (Approximate), Expires: 02/10/[address] [facility] Work Phone: Comment on above: Expected: 02/10/2025 (Approximate), Expires: 02/10/2026 Start: 01-25-2025 DTaP/Tdap/Td Vaccine s (7 - Td or Tdap) DTaP/Tdap/Td Vaccines (7 - Td or Tdap) [facility] Start: 02-28-2023 Influenza vaccination Influenza Vacc ine (#1) [facility] Start: 2023 Screening for malignant neoplasm of cervix [facility] Start: 09-14-2021 COVID-19 Vaccine (4 - Pfizer series) COVID-19 Vaccine (4 - Pfizer series) [facility] Start: 07-20-2020 Hepatitis A Vaccines (2 of 2 - 2-dose series) Hepatitis A Vaccines (2 of 2 - 2-dose series) [facility] Start: 02-15-2020 HPV Vaccines (2 - 3-dose series) HPV Vaccines (2 - 3-dose series) [facility] Start: 01-24-2020 Hepatitis C screening Hepatitis C Sc donato [facility] Start: 2005 Well Child Visit (WC V) - Annual Well Child Visit (WCV) - Annual [facility] Start: 2002 Hearing Screening (#1) Hearing Scree lea (#1) [facility] Start: 2002 HIV screening HIV Screening [facility] Start: 2002 Lipid panel Lipid Panel [facility] Cytology Cervical or vaginal smear or scraping study Pap Smear Pathology and Cytology Routine Well woman exam with routine gynecological exam Ordered: 01/12/2025 [facility] Work Phone: Comment on above: Ordered: 01/12/2025 Immunizations Immunization Date Immunization Notes Care Provider Guicho henderson 02-01-2021 COVID-19 Vaccine Pfi zer - Documentation Purposes Only Eliza Castellano Other [facility] 01-11-2021 COVID-19 Vaccine Pfi zer - Documentation Purposes Only Eliza Castellano Other [facility] 01-18-2020 hepatitis A and hepatitis B vaccine Juan Pablo Pastor PA-C Work Phone: [facility] Work Phone: 01-18-2020 HPV, unspecified formulation Juan Pablo Pastor PA-C Work Phone: [facility] Work Phone: Payers Date Payer Category Payer Self-pay 2023 Private Health Insurance [employer] [id number] 2023 Unknown [id number] 2021 Unknown GENERIC COMMER[employer] AL GENERIC COMMERCIAL [id number] 2021-Present [phone] [id number] 2002 Unknown [id number] 2002 Unknown [id number] 1973 Unknown [id number] 1959 Unknown [id number] Unknown [id number] Social History Date Type Detail Facility Start: 03-31-2023 Sex Assigned At Medical Referral Source Other Start: 03-31-2023 End: 01-10-2025 Tobacco smoking status NHIS Never smoked tobacco [facility] Work Phone: Start: 03-31-2023 History of Social function [facility] Work Phone: Start: 2000 Sex Assigned At Not on file [facility] Work Phone: Start: 03-21-2023 End: 03-31-2023 Exposure to SARS-CoV-2 (event) Unable to assess [facility] Sex Female (finding) [facility] Start: 2000 Sex Assigned At Female [facility] Tobacco smoking status NHIS Tobacco smoking consumption unknown [facility] NEGATED: Highlighted row N [facility] Clinical Notes 12-23-2021 to 02-10-2025 Suzie Rowley [...] nursing note reviewed. Exam conducted with a electrolog operator present. Vitals: Estimated body mass index is [...] Imani Reyes DO documented in this encounter [facility] 01-12-2025 History of Presen t illness Narrative [...] nursing note reviewed. Exam conducted with a electrolog operator present. Vitals: Estimated body mass index is [...] them. Patient can also view results via [employer]. I reinforced importance of condom use for [...] Imani Reyes DO documented in this encounter [facility] 01-10-2025 Evaluation note Diagnosis Onset Date Resolution Wellness examination acute January 10, 2025 11:02am [facility] Work Phone: [phone]) 924-300601-04-2024 Evaluation note* Encounter Date Diagnosis Assessment Notes [...] does flare w certain deoderant at times Medical Referral Source Other 10-12-2023 Evaluation note* Encounter Date Diagnosis Assessment Notes Treatment Notes Treatment Clinical Notes Mar, Folliculitis (ICD-10 - L73.9) Finish oral antibiotics. 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 Discussed stress relief and treatment going forward. Medical Referral Source Other 10-02-2023 History of Present illness Narrative* [...] methylprednisolone pack documented in this [facility] Work Phone: [phone]) [phone] Instructions* Patient Instructions* Juan Pablo Pastor PA-C [...] on a [facility]one pack [facility]: [phone]) [phone] Evaluation note* Encounter Date Diagnosis Assessment Notes [...] patient is sent home pleased, without concerns. Medical Referral Source Other 06-26-2022 Evaluation note* Encounter Date Diagnosis Assessment Notes Treatment Notes Treatment Clinical Notes Nov, Conjunctivitis of both eyes, unspecified conjunctivitis type (ICD-10 - H10.9) Drink plenty fluids, get plenty of rest. Discard your contacts that you are wearing. Use the eyedrops as prescribed. Follow-up with your eye doctor regarding when to start wearing your contacts again. Medical Referral Source Other Evaluation note* Diagnosis Rash- Primary Rash and other nonspecific skin eruption documented in this encounter [facility] Work Phone: Evaluation noteNo assessment information available [facility] Work Phone: Evaluation note* Diagnosis Well woman exam with routine gynecological exam Routine gynecological examination documented in this encounter [facility] HealthcareEvaluation note* Diagnosis LGSIL of cervix of undetermined significance LGSIL on Pap smear of cervix documented in this encounter [facility] HealthcareHistory general Narrative - Reported* Type Description Date Surgical History left clavicle 2018 Hospitalization History dehydration [employer] [facility] [employer] Other History general Narrative - Reported* Type Description Date Medical History Cellulitis Surgical History left clavicle 2018 Hospitalization History dehydration [employer] [facility] [employer] Other Reason for referral (narrative)No reason for referral [facility] Work Phone: Summary Purpose Family History No [...] content) DATE CREATED AUTHOR [facility]14/2018 [facility] DATE CREATED AUTHOR AUTHOR'S ORGANIZ ATION 12/21/2020 [facility] DATE CREATED AUTHOR AUTHOR'S ORGANIZ ATION 02/12/2025 [facility] [place] DATE CREATED AUTHOR AUTHOR'S ORGANIZ ATION 02/13/2025 [facility] REASON FOR VISIT (unrecogniz ed [...] January 10, 2025 End: January 10, 2025 Drafting Detailer Relationship Specialty Start Date End Date Eliza Castellano MD [address] [place] [place] [phone] PCP - General Family Medicine 01/12/24 Drafting Detailer Relationship Specialty Start Date End Date Eliza Castellano MD [address] [place] [place] [address] PCP - General Family Medicine 01/12/24 Drafting Detailer Relationship Specialty Start Date End Date Eliza Castellano MD [address] [place] [place] [phone] PCP - General Family Medicine 01/12/24 Drafting Detailer Relationship Specialty Start Date End Date Eliza Castellano MD [address] [place] [place] [address] PCP - General Family Medicine 01/12/24 Team [...] BE BASED ON THE PRIMARY CLINICAL RECORDS. [facility] [employer] [facility]. provides no warranty or guarantee of the accuracy or completeness of information in this document.
== END 2025-02-10 13:08 | disposition home or self-care (01) ==
LOC: LAB 13:07
PROVIDERS: Visit Provider Obstetrics & Gynecology
DX: R87.612 Low grade squamous intraepithelial lesion on cytologic smear of cervix (LGSIL) (principal)
CPT/HCPCS: 88305